=== PATIENT | male | born 1935 | race Caucasian/White ===

== ENCOUNTER 2024-11-19 19:05 | Emergency (ER) | payer OTHER, SELFPAY ==
[2024-11-19 19:09] VITALS: BP 160/78; PULSE 64; O2SAT 92
[2024-11-19 19:15] VITALS: BP 160/78; PULSE 59; RESP 20; TEMP 36.6; O2SAT 96
--- NOTE | 2024-11-19 19:27 | PC.NURSE ---
Pt awake and alert PUpils pinpoint bilaterally MLP at bedside Skin pink warm and dry Pt has congested cough Speech clear and appropriate. Family at bedside. Report given to Humaira MARSH
[2024-11-19 19:30] VITALS: BP 154/70; PULSE 93; O2SAT 96
--- NOTE | 2024-11-19 19:31 | ED_ITS ---
<Statement entered by Gretel Stevens DO - 11/19/24 23:00> I was consulted by the LIOR, and we discussed the complexity of the problems being addressed. I approved the treatment and management plan for this patient's care in the emergency department, thus performing a substantive portion of the medical decision making. I assumed care of the patient at time of departure of LIOR. Labs reassuring with mild anemia, mild hyperchloremia and mildly elevated BUN. Overall, labs are reassuring. He does have concerns for persistent urinary tract infection with too numerous to count white blood cells on urinalysis, though it is slightly contaminated with squamous cells. He is still on antibiotic treatment for urinary tract infection. On my assessment of the patient, he is lying in bed in no acute distress. He is alert, oriented, at his baseline. 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 Please see radiology read for final interpretation. I did notify family of all findings. They stated their biggest concern was making sure that he does not have a traumatic injury from his fall that happened today, as he was having difficulty getting up after that. They feel that he is doing well with regards to all of his other issues that had been going on and is much improved. Overall, patient able to get up and ambulate throughout the emergency department without issue with a walker. He is feeling fine and family wants to take him home. I discussed with them the urinalysis findings and stated we would send a culture, and they are fine with continuing the outpatient antibiotics that he is on at this time pending culture results. They were given strict return precautions as well as instructions for close follow-up as an outpatient. Patient was discharged after all questions were answered. Gretel Stevens DO Discharge Plan Disposition Chief Complaint: Fall Prescriptions Prescriptions: No Action metformin 500 mg Tablet 500 mg PO BID lisinopril 20 mg Tablet 20 mg PO DAILY amlodipine 5 mg Tablet 5 mg PO DAILY famotidine [Pepcid] 20 mg Tablet 20 mg PO DAILY mirtazapine [Remeron] 45 mg Tablet 45 mg PO HS levofloxacin 750 mg Tablet 750 mg PO TID olanzapine 20 mg Tablet See Protocol PO ONCE Protocol: Age Greater than 75 Protocol Text: Age less than 75 years, to be administred with initial in subcutaneous dose finasteride 5 mg Tablet 5 mg PO DAILY Referrals Follow up/Referrals: Al Cotto MD [Primary Care Provider] - See instructions Print Language Print Language: Setswana Discharge ED Provider: Gretel Stevens General Adult HPI <ANA LILIA Mcelroy - Last Filed: 11/19/24 20:15> General Chief complaint: Fall Stated complaint: slid out of chair,back pain Time Seen by Provider: 11/19/24 19:17 Mode of Arrival: Wheelchair Source of Information: Patient Limitations: No Limitations Description of Symptoms (Recalled from ER Triage Doc. by RN): Pt fell from a chair today when trying to stand. Pt fell yesterday too. History of Present Illness HPI narrative: Patient presents for evaluation of initially a fall. EMS was called to the residence for evaluation of a fall. Patient was sitting in the floor and unable to arise on his own. There is no known mechanism of the fall. However once the patient arrived and family members arrived there is a significant amount of history. Patient was recently admitted to [facility] for encephalopathic behavior. Patient has had periods of krupa insomnia impulsivity and irrational thought. He has a known history of Parkinson's but is not on any medications. He sees neurology in [place] and at some point he was started on Abilify as his first medication for Parkinson's. Patient ultimately was intolerant of that medication and was either weaned off or self discontinued. That was about 3 to 4 years ago. Patient been doing well until about 3 months ago when he started having aberrant behaviors spending exorbitant signs of money having periods of manic behavior. 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 Over the past week however he had not slept becoming more more delusional and grandiose. He would have severe mood swings between anger and lethargy. He was ultimately admitted to the [facility] floor at [place] for ostensibly a urinary tract infection and toxic metabolic encephalopathy. He was evaluated by psychiatry and although I do not have the discharge summary was started on olanzapine and Remeron by psychiatry. He was discharged early yesterday from that facility and promptly went out when out and purchased a $80,000 automobile. He apparently had a fall last night injuring the left side of his restorationist but refused to come to the hospital for it. He reportedly again did not sleep last night spent the night wandering the house. Once he fell today and could not get up EMS was called and brought him to our facility. On arrival patient is not oriented to person place or circumstance but is conscious with a weak wet cough. I cannot get any complaints out of the patient other than irritability upon being stimulated. Related Data Home Medications ?Medication ?Instructions ?Recorded ?Confirmed amlodipine 5 mg tablet 5 mg PO DAILY 11/19/24 11/19/24 famotidine 20 mg tablet (Pepcid) 20 mg PO DAILY 11/19/24 11/19/24 finasteride 5 mg tablet 5 mg PO DAILY 11/19/24 11/19/24 levofloxacin 750 mg tablet 750 mg PO TID 11/19/24 11/19/24 lisinopril 20 mg tablet 20 mg PO DAILY 11/19/24 11/19/24 metformin 500 mg tablet 500 mg PO BID 11/19/24 11/19/24 mirtazapine 45 mg tablet 45 mg PO HS 11/19/24 11/19/24 olanzapine 20 mg tablet See Protocol PO ONCE 11/19/24 11/19/24 Allergies Allergy/AdvReac Type Severity Reaction Status Date / Time No Known Allergies Allergy Verified 11/19/24 19:18 [facility] <ANA LILIA Mcelroy - Last Filed: 11/19/24 20:15> [facility] Disclaimer: The information contained in this section may have been updated after the patient was seen, as this information can be updated by other users. Social History Smoking Status: Current every day smoker alcohol intake: former current occupational status: retired Travel in the last 8 weeks: None <ANA LILIA Mcelroy - Last Filed: 11/19/24 20:15> ROS Obtained: Yes Systems reviewed as appropriate & no additional complaints except as documented Physical Exam <ANA LILIA Mcelroy Last Filed: 11/19/24 20:15> General General appearance: obtunded Respiratory Respiratory exam: Absent normal lung sounds bilaterally, respiratory distress or accessory muscle use Cardiovascular Cardiovascular exam: Present bradycardia Neurological Exam Neurological exam: Absent alert or oriented X3 Medical Decision Making <ANA LILIA Mcelroy Last Filed: 11/19/24 20:15> Medical Records Medical records reviewed: Yes I reviewed the patient's medical records. Screening: Per USPSTF and CDC recommendations, given the prevalence of disease in our region, it is our hospital?s policy to screen for HIV and viral Hepatitis for all patients aged 18 and over and those with ongoing risk factors. Alan Inquiry Pt receiving controlled substance: No Vital Signs: 11/19/24 19:15 Temperature 97.8 F Temperature Source Oral Pulse Rate [Right Brachial] 59 L Respiratory Rate 20 Blood Pressure [Right Arm] 160/78 H Blood Pressure Mean [Right Arm] 105 Blood Pressure Source [Right Arm] Automatic Cuff Blood Pressure Position [Right Arm] Supine 02 Sat by Pulse Oximetry 96 Oxygen Delivery Method Room Air Lab Data Lab results reviewed: Yes I reviewed the patient's lab results. Lab Results 11/19/24 19:40: WBC 9.9, RBC 3.76 L, Hgb 10.9 L, Hct 34.4 L, MCV 91.5, MCH 29.0, MCHC 31.7 L, RDW 16.7, Plt Count 247, MPV 9.7, Neut % (Auto) 69.2, Lymph % (Auto) 16.6, [place] % (Auto) 8.8, Eos % (Auto) 4.4, Baso % (Auto) 0.5, Neut # (Auto) 6.8, Lymph # (Auto) 1.6, [place] # (Auto) 0.9, Eos # (Auto) 0.4, Baso # (Auto) 0.1 11/19/24 19:40 Orders (Tests/Meds): ORDERS Category Date Time Status CT angio abdomen pelvis Stat Cat Scan 11/19/24 19:[address] angio chest - dissection Stat Cat Scan 11/19/24 19:[address] angio head Stat Cat Scan 11/19/24 19:[address] angio neck Stat Cat Scan 11/19/24 19:[address] bony pelvis Stat Cat Scan 11/19/24 19:[address] cervical spine wo con Stat Cat Scan 11/19/24 19:[address] facial bones wo con Stat Cat Scan 11/19/24 19:[address] head/brain wo con Stat Cat Scan 11/19/24 19:[address] lumbar spine wo con Stat Cat Scan 11/19/24 19:[address] thoracic spine wo con Stat Cat Scan 11/19/24 19:32 Ordered Acetaminophen Stat Lab 11/19/24 19:40 Received Ammonia Stat Lab 11/19/24 19:50 Received BNP [NT Pro Brain Natriuretic Pep.] Stat Lab 11/19/24 19:40 Received Blood alcohol [Ethyl Alcohol] Stat Lab 11/19/24 19:40 Received CBC w/Auto Diff [Complete Blood Count Auto Diff] Stat Lab 11/19/24 19:40 Completed CMP [Comprehensive Metabolic Panel] Stat Lab 11/19/24 19:40 Received CRP [C-Reactive Protein] Stat Lab 11/19/24 19:40 Received ESR [Erythrocyte Sedimentation Rate] Stat Lab 11/19/24 19:40 Received Full Resp Panel w/COVID ([facility]) Routine Lab 11/19/24 19:50 Received INR [Prothrombin Time INR] Stat Lab 11/19/24 19:40 Received Magnesium Stat Lab 11/19/24 19:40 Received Procalcitonin Stat Lab 11/19/24 19:40 Received Salicylate Stat Lab 11/19/24 19:40 Received Thyroid Panel Stat Lab 11/19/24 19:40 Received Trop I [Troponin I] Stat Lab 11/19/24 19:40 Received Troponin I Q3H Lab 11/19/24 22:45 Ordered Troponin I Q3H Lab 11/20/24 01:45 Ordered UA [Urinalysis and Microscopic] Stat Lab 11/19/24 19:57 Received Blood Culture Stat Micro 11/19/24 19:34 Ordered VBG [Venous Blood Gas] Stat RT 11/19/24 19:34 Ordered HEART Score History (anamnesis): Slightly suspicious ECG: Normal Age: >65 years Risk factors: 3 or more risk factors Troponin: </= normal limit HEART Score: 4 Medical Decision Narrative: In summary patient is a 89-year-old male who presents to the emergency department for evaluation of a fall and encephalopathy and psychosis. Patient is initially normotensive at 160/78 slightly bradycardic with sinus rhythm on the monitor at 59 than 20 times a minute satting at 96% on room air upon arrival, temperature of 97.8. Physical exam is remarkable for a Rene Coma Score of 2 ? 4 ? 6, oriented to self only. Pupils are pinpoint but equal extraocular movements are intact. Patient has Rales in the bilateral dependent lungs with no increased work of breathing. Heart sounds are normal. Patient has a skin tear in the restorationist area of the left side of his head but no palpable bony deformity. Patient moves all 4 extremities and has no focal deficits that I can elicit.. Differential diagnosis includes stroke versus organic brain disease versus toxic metabolic encephalopathy versus infection etc. Initial workup will be conducted with EKG hematologic labs urinalysis urine drug screen ED trauma scans. Initial interventions are deferred for now other than neurochecks continuous cardiac monitoring and pulse oximetry. Initial workup ordered and pending at the time of handoff to Dr. Stevens at 2100 hrs. <Gretel Stevens, DO - Last Filed: 11/19/24 19:53> Vital Signs: 11/19/24 19:15 Temperature 97.8 F Temperature Source Oral Pulse Rate [Right Brachial] 59 L Respiratory Rate 20 Blood Pressure [Right Arm] 160/78 H Blood Pressure Mean [Right Arm] 105 Blood Pressure Source [Right Arm] Automatic Cuff Blood Pressure Position [Right Arm] Supine 02 Sat by Pulse Oximetry 96 Oxygen Delivery Method Room Air Lab Data Lab Results 11/19/24 19:40: WBC 9.9, RBC 3.76 L, Hgb 10.9 L, Hct 34.4 L, MCV 91.5, MCH 29.0, MCHC 31.7 L, RDW 16.7, Plt Count 247, MPV 9.7, Neut % (Auto) 69.2, Lymph % (Auto) 16.6, [place] % (Auto) 8.8, Eos % (Auto) 4.4, Baso % (Auto) 0.5, Neut # (Auto) 6.8, Lymph # (Auto) 1.6, [place] # (Auto) 0.9, Eos # (Auto) 0.4, Baso # (Auto) 0.1 Orders (Tests/Meds): ORDERS Category Date Time Status CT angio abdomen pelvis Stat Cat Scan 11/19/24 19:[address] angio chest - dissection Stat Cat Scan 11/19/24 19:[address] angio head Stat Cat Scan 11/19/24 19:[address] angio neck Stat Cat Scan 11/19/24 19:[address] bony pelvis Stat Cat Scan 11/19/24 19:[address] cervical spine wo con Stat Cat Scan 11/19/24 19:[address] facial bones wo con Stat Cat Scan 11/19/24 19:[address] head/brain wo con Stat Cat Scan 11/19/24 19:[address] lumbar spine wo con Stat Cat Scan 11/19/24 19:[address] thoracic spine wo con Stat Cat Scan 11/19/24 19:32 Ordered Acetaminophen Stat Lab 11/19/24 19:40 Received Ammonia Stat Lab 11/19/24 19:50 Received BNP [NT Pro Brain Natriuretic Pep.] Stat Lab 11/19/24 19:40 Received Blood alcohol [Ethyl Alcohol] Stat Lab 11/19/24 19:40 Received CBC w/Auto Diff [Complete Blood Count Auto Diff] Stat Lab 11/19/24 19:40 Completed CMP [Comprehensive Metabolic Panel] Stat Lab 11/19/24 19:40 Received CRP [C-Reactive Protein] Stat Lab 11/19/24 19:40 Received ESR [Erythrocyte Sedimentation Rate] Stat Lab 11/19/24 19:40 Received Full Resp Panel w/COVID ([facility]) Routine Lab 11/19/24 19:50 Received INR [Prothrombin Time INR] Stat Lab 11/19/24 19:40 Received Magnesium Stat Lab 11/19/24 19:40 Received Procalcitonin Stat Lab 11/19/24 19:40 Received Salicylate Stat Lab 11/19/24 19:40 Received Thyroid Panel Stat Lab 11/19/24 19:40 Received Trop I [Troponin I] Stat Lab 11/19/24 19:40 Received Troponin I Q3H Lab 11/19/24 22:45 Ordered Troponin I Q3H Lab 11/20/24 01:45 Ordered UA [Urinalysis and Microscopic] Stat Lab 11/19/24 19:57 Received Blood Culture Stat Micro 11/19/24 19:34 Ordered VBG [Venous Blood Gas] Stat RT 11/19/24 19:34 Ordered ECG Data Tracing #1: I reviewed this ECG and interpreted as documented below: Normal sinus rhythm with a ventricular rate of [address] changes concerning for ischemia. Normal intervals ECG initial impression date: 11/19/24 ECG initial impression time: 19:53 Critical Care <ANA LILIA Mcelroy - Last Filed: 11/19/24 20:15> Critical Care Time Critical Care Time: Yes Attestation: On 11/19/24, the high probability of a clinically significant, sudden or life threatening deterioration of the following system(s) required my full and direct attention, intervention and personal management. The time I documented below is in addition to time spent performing reported procedures but includes the following listed in this critical care notation. Total Time Total Critical Care Time: 35
--- NOTE | 2024-11-19 19:32 | CT_ITS ---
PROCEDURE INFORMATION: Exam: CT Cervical Spine Without Contrast Exam date and time: 11/19/2024 8:25 PM Age: 89 years old Clinical indication: Injury or trauma; Fall; Blunt trauma; Additional info: Trauma, critical injury suspected TECHNIQUE: Imaging protocol: Computed tomography of the cervical spine without contrast. Radiation optimization: All CT scans at this facility use at least one of these dose optimization techniques: automated exposure control; mA and/or kV adjustment per patient size (includes targeted exams where dose is matched to clinical indication); or iterative reconstruction. COMPARISON: CT CERVICAL SPINE WO CON 11/19/2024 8:25 PM FINDINGS: Bones: Cervical vertebrae normal in height. No acute fracture. Mild dextroconvex curvature of the cervicothoracic spine. Grade 1 anterolisthesis C2 on C3 and C7 on T1. Maintained craniocervical junction. Multilevel degenerative changes. Varying degrees of neural foraminal narrowing. No severe spinal canal stenosis. Nonspecific 4 mm sclerotic focus within the C4 vertebral body without aggressive features. Lungs: Emphysema. Soft tissues: Unremarkable. IMPRESSION: No acute osseous findings.
--- NOTE | 2024-11-19 19:32 | CT_ITS ---
PROCEDURE INFORMATION: Exam: CT Lumbar Spine Without Contrast Exam date and time: 11/19/2024 8:30 PM Age: 89 years old Clinical indication: Injury or trauma; Fall; Blunt trauma (contusions or hematomas); Additional info: Trauma, critical injury suspected TECHNIQUE: Imaging protocol: Computed tomography of the lumbar spine without contrast. Radiation optimization: All CT scans at this facility use at least one of these dose optimization techniques: automated exposure control; mA and/or kV adjustment per patient size (includes targeted exams where dose is matched to clinical indication); or iterative reconstruction. COMPARISON: CT THORACIC SPINE WO CON 11/19/2024 8:27 PM FINDINGS: Bones/joints: No acute fracture. Normal alignment. Discs: [id number] disc space narrowing at T12-L1, L1-L2, L2-L3, L4-L5. L1-L2: No significant disc bulge or herniation. No severe spinal canal stenosis. No significant neural foraminal narrowing. L2-L3: No significant disc bulge or herniation. No severe spinal canal stenosis. No significant neural foraminal narrowing. L3-L4: No significant disc bulge or herniation. No severe spinal canal stenosis. No significant neural foraminal narrowing. L4-L5: No significant disc bulge or herniation. No severe spinal canal stenosis. No significant neural foraminal narrowing. L5-S1: No significant disc bulge or herniation. No severe spinal canal stenosis. No significant neural foraminal narrowing. Soft tissues: Unremarkable. IMPRESSION: No acute abnormality. No significant central canal stenosis. Mild multilevel degenerative disc disease, as described above.
--- NOTE | 2024-11-19 19:32 | CT_ITS ---
PROCEDURE INFORMATION: Exam: CT Pelvis Without Contrast, Skeleton Exam date and time: 11/19/2024 8:33 PM Age: 89 years old Clinical indication: Injury or trauma; Fall; Blunt trauma (contusions or hematomas); Bilateral; Pelvic region; Additional info: Trauma, critical injury suspected TECHNIQUE: Imaging protocol: Computed tomography of the pelvis without contrast. Exam focused on the skeleton. Radiation optimization: All CT scans at this facility use at least one of these dose optimization techniques: automated exposure control; mA and/or kV adjustment per patient size (includes targeted exams where dose is matched to clinical indication); or iterative reconstruction. COMPARISON: CT LUMBAR SPINE WO CON 11/19/2024 8:30 PM FINDINGS: Bones/joints: Unremarkable. No acute fracture. No dislocation. Soft tissues: Unremarkable. IMPRESSION: No acute findings.
--- NOTE | 2024-11-19 19:32 | CT_ITS ---
PROCEDURE INFORMATION: Exam: CT Maxillofacial Without Contrast Exam date and time: 11/19/2024 8:23 PM Age: 89 years old Clinical indication: Injury or trauma; Fall; Blunt trauma (contusions or hematomas); Head/scalp and forehead; Loss of consciousness not known; Additional info: Trauma, critical injury suspected TECHNIQUE: Imaging protocol: Computed tomography of the face without contrast. Radiation optimization: All CT scans at this facility use at least one of these dose optimization techniques: automated exposure control; mA and/or kV adjustment per patient size (includes targeted exams where dose is matched to clinical indication); or iterative reconstruction. COMPARISON: CT HEAD/BRAIN WO CON 11/19/2024 8:21 PM FINDINGS: Paranasal sinuses: Partial opacification of the maxillary sinuses containing bubbly opacities suggestive of acute sinusitis. Orbital cavities: Orbits are normal. Globes are unremarkable. Bones: No acute fracture. Soft tissues: Unremarkable. IMPRESSION: No acute findings.
--- NOTE | 2024-11-19 19:32 | CT_ITS ---
PROCEDURE INFORMATION: Exam: CTA Head With Contrast, Arteriography Exam date and time: 11/19/2024 8:35 PM Age: 89 years old Clinical indication: Injury or trauma; Fall; Blunt trauma; Head and neck; Additional info: Trauma, critical injury suspected TECHNIQUE: Imaging protocol: Computed tomographic angiography of the head with contrast. Exam focused on the arteries. 3D rendering (Not supervised by radiologist): MIP and/or 3D reconstructed images were created by the technologist. Radiation optimization: All CT scans at this facility use at least one of these dose optimization techniques: automated exposure control; mA and/or kV adjustment per patient size (includes targeted exams where dose is matched to clinical indication); or iterative reconstruction. Contrast material: ISO 370; Contrast volume: 80 ml; Contrast route: INTRAVENOUS (IV); COMPARISON: CT HEAD/BRAIN WO CON 11/19/2024 8:21 PM FINDINGS: ANTERIOR CIRCULATION: Right internal carotid artery: Minimal atherosclerotic narrowing of the intracranial segment without flow-limiting stenosis. No aneurysm. Right middle cerebral artery: No occlusion or significant stenosis. No aneurysm. Right anterior cerebral artery: Hypoplastic A1 segment. Flow within the A2 segment largely established by means of an anterior communicating artery. No occlusion or significant stenosis. No aneurysm. Left internal carotid artery: Macro intracranial mild Left middle cerebral artery: No occlusion or significant stenosis. No aneurysm. Left anterior cerebral artery: No occlusion or significant stenosis. No aneurysm. POSTERIOR CIRCULATION: Right vertebral artery: No occlusion or significant stenosis. No aneurysm. Left vertebral artery: No occlusion or significant stenosis. No aneurysm. Basilar artery: No occlusion or significant stenosis. No aneurysm. Right posterior cerebral artery: No occlusion or significant stenosis. No aneurysm. Left posterior cerebral artery: No occlusion or significant stenosis. No aneurysm. Brain: No definite mass, mass effect, or midline shift. Cerebral ventricles: No ventriculomegaly. Bones/joints: Unremarkable. No acute fracture. Soft tissues: Unremarkable. IMPRESSION: No large vessel stenosis or occlusion.
--- NOTE | 2024-11-19 19:32 | CT_ITS ---
PROCEDURE INFORMATION: Exam: CTA Neck With Contrast Exam date and time: 11/19/2024 8:35 PM Age: 89 years old Clinical indication: Injury or trauma; Fall; Blunt trauma; Head and neck; Additional info: Trauma, critical injury suspected TECHNIQUE: Imaging protocol: Computed tomographic angiography of the neck with contrast. Exam focused on the cervical segments of the vasculature. 3D rendering (Not supervised by radiologist): MIP and/or 3D reconstructed images were created by the technologist. Radiation optimization: All CT scans at this facility use at least one of these dose optimization techniques: automated exposure control; mA and/or kV adjustment per patient size (includes targeted exams where dose is matched to clinical indication); or iterative reconstruction. Contrast material: ISO 370; Contrast volume: 80 ml; Contrast route: INTRAVENOUS (IV); COMPARISON: CT CERVICAL SPINE WO CON 11/19/2024 8:25 PM FINDINGS: Right common carotid artery: Minimal atherosclerosis of the carotid bulb without flow-limiting stenosis. No dissection or occlusion. Right internal carotid artery: No stenosis of the extracranial segment. No dissection or occlusion. Right external carotid artery: No occlusion or stenosis of the origin. Left common carotid artery: Mild atherosclerosis of the carotid bulb without flow-limiting stenosis. No dissection or occlusion. Left internal carotid artery: Mild stenosis of the proximal cervical segment. No dissection or occlusion. Left external carotid artery: No occlusion or stenosis of the origin. Right vertebral artery: Dominant vessel. No stenosis. No dissection or occlusion. Left vertebral artery: No stenosis. No dissection or occlusion. Soft tissues: Unremarkable. Bones/joints: Degenerative changes. No acute fracture. IMPRESSION: 1. No occlusion or dissection. 2. 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 REFERENCES: NASCET CRITERIA. The degree of stenosis in the cervical segment of the internal carotid artery is based on NASCET criteria. Normal is no stenosis. Mild is less than 50% stenosis. Moderate is 50-69% stenosis. Severe is 70% to 99% stenosis. Total occlusion is no detectable patent lumen.
--- NOTE | 2024-11-19 19:32 | CT_ITS ---
PROCEDURE INFORMATION: Exam: CT Head Without Contrast Exam date and time: 11/19/2024 8:21 PM Age: 89 years old Clinical indication: Injury or trauma; Fall; Blunt trauma (contusions or hematomas); Additional info: Trauma, critical injury suspected TECHNIQUE: Imaging protocol: Computed tomography of the head without contrast. Radiation optimization: All CT scans at this facility use at least one of these dose optimization techniques: automated exposure control; mA and/or kV adjustment per patient size (includes targeted exams where dose is matched to clinical indication); or iterative reconstruction. COMPARISON: No relevant prior studies available. FINDINGS: Brain: No acute intracranial hemorrhage, midline shift, or mass effect. Diffuse brain parenchymal volume loss. Moderate hypodensities within the cerebral white matter most consistent with chronic small-vessel ischemic changes. Cerebral ventricles: No ventriculomegaly. Paranasal sinuses: Partial opacification of the maxillary sinuses containing bubbly opacities suggestive of acute sinusitis. Mastoid air cells: Visualized mastoid air cells are well aerated. Bones: Unremarkable. No acute fracture. Soft tissues: Unremarkable. IMPRESSION: No acute intracranial findings.
--- NOTE | 2024-11-19 19:32 | CT_ITS ---
PROCEDURE INFORMATION: Exam: CTA Chest With Contrast Exam date and time: 11/19/2024 8:39 PM Age: 89 years old Clinical indication: Injury or trauma; Fall; Blunt trauma (contusions or hematomas); Additional info: Trauma, critical injury suspected TECHNIQUE: Imaging protocol: Computed tomographic angiography of the chest with contrast. Exam focused on the arteries. 3D rendering (Not supervised by radiologist): MIP and/or 3D reconstructed images were created by the technologist. Radiation optimization: All CT scans at this facility use at least one of these dose optimization techniques: automated exposure control; mA and/or kV adjustment per patient size (includes targeted exams where dose is matched to clinical indication); or iterative reconstruction. Contrast material: ISO 370; Contrast volume: 80 ml; Contrast route: INTRAVENOUS (IV); COMPARISON: CT ANGIO ABDOMEN PELVIS 11/19/2024 8:39 PM FINDINGS: Pulmonary arteries: Normal. No pulmonary emboli. Aorta: Moderate calcification of the thoracic aorta. Lungs: Mild subpleural emphysema. No focal consolidation. Pleural spaces: Unremarkable. No pneumothorax. No pleural effusion. Heart: Unremarkable. No cardiomegaly. No pericardial effusion. Coronary arteries: Extensive calcification of the coronary arteries. Lymph nodes: Unremarkable. No enlarged lymph nodes. Bones/joints: Degenerative changes in the lumbar spine and bilateral shoulders. Soft tissues: Unremarkable. IMPRESSION: No acute intrathoracic abnormality. Moderate atherosclerotic calcification of the aorta without aneurysm or dissection. Extensive calcification of the coronary arteries. Mild subpleural emphysema. The presence of pulmonary emphysema on CT is an independent risk factor for lung cancer. In the absence of a history or active diagnosis of lung cancer, it is recommended that this patient with emphysema be evaluated for enrollment in a low dose CT lung cancer [facility] thank you screening program. ?
--- NOTE | 2024-11-19 19:32 | CT_ITS ---
PROCEDURE INFORMATION: Exam: CTA Abdomen and Pelvis With Contrast Exam date and time: 11/19/2024 8:39 PM Age: 89 years old Clinical indication: Injury or trauma; Fall; Blunt trauma; Other: Trauma, critical injury suspected TECHNIQUE: Imaging protocol: Computed tomographic angiography of the abdomen and pelvis with contrast. Exam focused on the arteries. 3D rendering (Not supervised by radiologist): MIP and/or 3D reconstructed images were created by the technologist. Radiation optimization: All CT scans at this facility use at least one of these dose optimization techniques: automated exposure control; mA and/or kV adjustment per patient size (includes targeted exams where dose is matched to clinical indication); or iterative reconstruction. Contrast material: ISO 370; Contrast volume: 80 ml; Contrast route: INTRAVENOUS (IV); COMPARISON: CT BONY PELVIS 11/19/2024 8:33 PM FINDINGS: Aorta: Moderate calcification and ectasia of the abdominal aorta without aneurysm or dissection. Celiac trunk and mesenteric arteries: No occlusion or significant stenosis. Renal arteries: No occlusion or significant stenosis. Right iliac arteries: Extensive calcification of the right common iliac artery with mild stenosis. Left iliac arteries: Mild calcification of the left common iliac artery without significant stenosis. Bulky calcification with severe stenosis of the left internal iliac artery. Liver: No mass. Gallbladder and biliary ducts: Unremarkable. No calcified stones. No ductal dilation. Pancreas: Unremarkable. No mass. No ductal dilation. Spleen: Unremarkable. No splenomegaly. Adrenal glands: Unremarkable. No mass. Kidneys and ureters: Multiple small bilateral subcentimeter renal hypodensities which are too small to accurately characterize but statistically likely to be benign. Stomach and bowel: Numerous sigmoid diverticula without inflammatory changes. Appendix: No evidence of appendicitis. Intraperitoneal space: Unremarkable. No free air. No significant fluid collection. Lymph nodes: Unremarkable. No enlarged lymph nodes. Urinary bladder: Unremarkable. No mass. Reproductive: Unremarkable as visualized. Bones/joints: Degenerative changes throughout the spine. Soft tissues: Unremarkable. IMPRESSION: No traumatic vascular injury visualized. 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 Mild stenosis of the right common iliac artery. Diverticulosis of the colon.
--- NOTE | 2024-11-19 19:32 | CT_ITS ---
PROCEDURE INFORMATION: Exam: CT Thoracic Spine Without Contrast Exam date and time: 11/19/2024 8:27 PM Age: 89 years old Clinical indication: Injury or trauma; Fall; Blunt trauma (contusions or hematomas); Additional info: Trauma, critical injury suspected TECHNIQUE: Imaging protocol: Computed tomography of the thoracic spine without contrast. Radiation optimization: All CT scans at this facility use at least one of these dose optimization techniques: automated exposure control; mA and/or kV adjustment per patient size (includes targeted exams where dose is matched to clinical indication); or iterative reconstruction. COMPARISON: CT CERVICAL SPINE WO CON 11/19/2024 8:25 PM FINDINGS: Bones/joints: No displaced fracture or subluxation. Bridging osteophytes in the mid and lower thoracic spine. Mild compression deformity at T7. Soft tissues: Unremarkable. IMPRESSION: Mild age indeterminate compression fracture at T7. No associated central canal stenosis. No displaced fracture or subluxation. Bridging osteophytes in the mid and lower thoracic spine.
--- NOTE | 2024-11-19 19:48 | ECG_ITS ---
APPROVED REPORT Exam: Resting ECG HR:86 bpm ECG Measurements Heart Rate 86 AXES WY 172 P 85 QRSd 72 QRS 49 QT 331 T 73 QTc 374 Conclusion SINUS RHYTHM NORMAL ECG Electronically signed by : ADRIANNA HUNTER, 11/19/2024 23:01:03
[2024-11-19 19:52] LABS: Lactate Venous 1.6 mmol/L (0.4-2.0); VBG Base Excess 0.9 mmol/L (-2.4-2.3); VBG HCO3 26.1 mmol/L (23-30); VBG Oxygen Saturation 79.7 % (50-70); VBG PCO2 45.6 mmol/L (35-51); VBG PH 7.38 mmol/L (7.31-7.41); VBG Total CO2 27.5 mmol/L (23-27)
[2024-11-19 19:52] LABS: Basophils # 0.1 K/mm3 (0-0.2); Basophils % 0.5 % (0.1-2.0); Eosinophils # 0.4 K/mm3 (0.0-0.4); Eosinophils % 4.4 % (0.1-12.0); Hematocrit 34.4 % (42.0-52.0); Hemoglobin 10.9 g/dL (14.1-18.0); Lymphocytes # 1.6 K/mm3 (0.7-4.5); Lymphocytes % 16.6 % (10-50); Mean Corpuscular HGB Conc 31.7 g/dL (31.8-35.4); Mean Corpuscular Volume 91.5 fl (80-94); Mean Platelet Volume 9.7 fl (7.4-10.4); Monocytes # 0.9 K/mm3 (0.1-1.0); Monocytes % 8.8 % (1.7-9.3); Neutrophils # 6.8 K/mm3 (1.8-7.8); Neutrophils % 69.2 % (37.0-80.0); Platelet Count 247 K/mm3 (142-424); Red Blood Count 3.76 M/mm3 (4.60-6.20); Red Cell Distribution Width 16.7 % (11.5-17.5); White Blood Count 9.9 K/mm3 (4.8-10.8)
[2024-11-19 19:54] LABS: Adenovirus,PCR Not Detected (NotDetected); Bordetella Pertussis Not Detected (NotDetected); Chlamydophila Pneumoniae, PCR Not Detected (NotDetected); Coronavirus 19, PCR Not Detected (NotDetected); Coronavirus 229E Not Detected (NotDetected); Coronavirus NL63 Not Detected (NotDetected); Coronavirus OC43 Not Detected (NotDetected); Coronovirus HKU1,PCR Not Detected (NotDetected); Human Metapneumovirus Not Detected (NotDetected); Influenza A, PCR Not Detected (NotDetected); Influenza AH1, 2009 Not Detected (NotDetected); Influenza AH1, PCR Not Detected (NotDetected); Influenza AH3,PCR Not Detected (NotDetected); Influenza B, PCR Not Detected (NotDetected); Mycoplasma Pneumoniae, PCR Not Detected (NotDetected); Parainfluenza 1, PCR Not Detected (NotDetected); Parainfluenza 2, PCR Not Detected (NotDetected); Parainfluenza 3, PCR Not Detected (NotDetected); Parainfluenza 4, PCR Not Detected (NotDetected); Respiratory Syncytial Virus Not Detected (NotDetected); Rhinovirus/Enterovirus Not Detected (NotDetected)
[2024-11-19 20:00] VITALS: BP 163/94; PULSE 86; O2SAT 94
[2024-11-19 20:02] LABS: Microscopic, Urine URINE MICROSCOPIC (MICROSCOPIC)
[2024-11-19 20:04] LABS: Appearance,Urine CLEAR (Clear); Bilirubin,Urine Negative (Negative); Blood, Urine Negative (Negative); Color,Urine YELLOW (Yellow); Glucose,Urine (UA) 1+ (Negative); Ketones,Urine Negative (Negative); Leukocyte Esterase,Urine 1+ (Negative); Nitrate,Urine Negative (Negative); PH,Urine 7.5 (5.0-8.5); Protein,Urine TRACE (Negative); Urobilinogen,Urine 0.2 EU/dl (0.2)
[2024-11-19 20:06] LABS: Chloride 110 mmol/L (98-107); Potassium 4.6 mmoL/L (3.5-5.1); Sodium 144 mmol/L (136-145)
[2024-11-19 20:08] LABS: Blood Urea Nitrogen 22 mg/dl (9-20); Creatinine Clearance Estimated 40 mL/min (50-200); Estimated Glomerular Filt Rate 107 ml/min (>60); GFR (African American) 129 ML/MIN (>60)
[2024-11-19 20:09] LABS: Alanine Aminotransferase 21 U/L (12-78); Albumin/Globulin Ratio 1.4 (1.1-1.8); Alkaline Phosphatase 90 U/L (38-126); Anion Gap 11.6 mEq/L (5-15); Aspartate Amino Transferase 30 U/L (17-59); Bilirubin,Total 0.5 mg/dl (0.2-1.3); Calcium 9.3 mg/dl (8.4-10.2); Carbon Dioxide 27 mmol/L (22.0-30.0); Globulin 2.8 g/dL (1.3-3.2); Glucose 166 mg/dl (74-100); INR 0.92 (0.9-1.1); Prothrombin Time 10.2 seconds (9.2-12.1); Total Protein,Serum 6.8 g/dl (6.3-8.2)
[2024-11-19 20:10] LABS: Magnesium 1.6 mg/dl (1.6-2.3)
[2024-11-19 20:14] LABS: Erythrocyte Sedimentation Rate 34 mm/hr (0-20)
[2024-11-19 20:18] LABS: Acetaminophen < 10 ug/ml (10-30); Ethyl Alcohol < 10 mg/dl (0-10); Salicylate < 1.0 mg/dL (2.0-20.0)
[2024-11-19 20:19] LABS: NT Pro Brain Natriuretic Pep. 87.3 pg/mL (0-450)
[2024-11-19 20:19] LABS: Bacteria,Urine 2+ /lpf; WBC,Urine TNTC #/hpf (0-3)
[2024-11-19 20:21] LABS: C-Reactive Protein 3.1 mg/L (0-4)
[2024-11-19 20:23] LABS: Troponin I < 0.01 ng/ml (0.00-0.034)
[2024-11-19 20:24] LABS: Ammonia 15 umol/L (9-30)
[2024-11-19] MEDS: 0.9 % SODIUM CHLORIDE 50 ML VIAL IV (20:24)
[2024-11-19] MEDS: SODIUM CHLORIDE 0.9% 10ML SYR (RAD ONLY) 10 ML IV (20:25)
[2024-11-19] MEDS: IOPAMIDOL-370 (76%);100ML BOTTLE 160 ML IV (20:25)
--- NOTE | 2024-11-19 20:26 | PC.NURSE ---
Pt to CT scan via stretcher
[2024-11-19 20:34] LABS: Free Thyroxine Index 2.7 ug/dL (5.93-13.13); Procalcitonin 0.062 ng/mL (0.0-2.0); T4 (Thyroxine) 7.6 ug/dl (5.53-11.0); Triiodothryronine (T3) Uptake 36 % (23.5-40.5)
[2024-11-19 20:47] LABS: Thyroid Stimulating Hormone 4.21 uIU/mL (0.465-4.68)
--- NOTE | 2024-11-19 21:57 | PC.NURSE ---
THIS RN AND CREATIVE ASSISTANT BOTH ASSISTED PATIENT TO AMBULATE VIA WALKER TO BATHROOM FROM ROOM 7. PT WITNESSED AMBULATING WITH STEADY UPRIGHT GAIT, DENIES PAIN/DIZZINESS. PROVIDER MADE AWARE
[2024-11-19 22:03] VITALS: BP 124/79; PULSE 112; RESP 20; TEMP 36.6; O2SAT 95
--- NOTE | 2024-11-21 16:00 | PC.NURSE ---
URINE CULTURE DISCUSSED WITH DR HUNTER, NO NEW ORDERS
== END 2024-11-19 22:10 | disposition home or self-care (01) ==
PROVIDERS: Physician Assistant; Emergency Provider Emergency Medicine; PCP Family Medicine
DX: F06.2 Psychotic disorder with delusions due to known physiological condition (principal); J43.9 Emphysema, unspecified; I70.90 Unspecified atherosclerosis; N39.0 Urinary tract infection, site not specified; G20.A1 Parkinson's disease without dyskinesia, without mention of fluctuations; R29.6 Repeated falls; Z72.0 Tobacco use; M54.9 Dorsalgia, unspecified; R05.9 Cough, unspecified; G93.40 Encephalopathy, unspecified; W07.XXXA Fall from chair, initial encounter; Z91.81 History of falling
CPT/HCPCS: 70450; 70486; 70496; 70498; 71275; 72125; 72128; 72131; 72192; 74174; 80053; 80320; 80329; 81001; 82140; 82803; 83735; 83880; 84145; 84436; 84443; 84479; 84484; 85025; 85610; 85651; 86140; 87040; 87086; 87088; 87186; 87633; 93005; 99291; G0480; Q9967